=== PATIENT | female | born 1955 | race Caucasian/White ===

== ENCOUNTER 2019-08-13 17:31 | Observation (INO) | payer OTHER ==
[~2019-08-13] VITALS: Ht 160 cm; Wt 59.4 kg
[2019-08-13 17:36] VITALS: Ht 160 cm; Wt 59.4 kg
[2019-08-13 18:09] LABS: BASOPHIL % 0.4 % (0-2); RED CELL DISTRIBUTION WIDTH 14.2 % (11.5-14.5)
[2019-08-13 18:17] LABS: CALCIUM 9.4 mg/dL (8.5-10.1); CARBON DIOXIDE 24.7 mmol/L (21-32); CHLORIDE SERUM 100 mmol/L (98-107); CREATININE SERUM 0.9 mg/dL (0.6-1.0); GFR1 > 60 mL/min; GLUCOSE SERUM 108 mg/dL (74-106); POTASSIUM SERUM 4.2 mmol/L (3.5-5.1); SODIUM SERUM 134 mmol/L (136-145)
[2019-08-13 18:22] LABS: PLATELET COUNT 576 x10^3mcL (130-400)
[2019-08-13] MEDS ORDERED: MEDI-FIRST ASP325 MG PO (21:20)
[2019-08-13] MEDS ORDERED: SULFAMETHOXAZOL1 TAB PO (21:22)
[2019-08-13 22:58] VITALS: BP 142/57
[2019-08-14 06:06] VITALS: BP 127/69
[2019-08-14 06:23] LABS: BASOPHIL % 0.7 % (0-2); RED CELL DISTRIBUTION WIDTH 14.4 % (11.5-14.5)
[2019-08-14 06:33] LABS: PLATELET COUNT 561 x10^3mcL (130-400)
[2019-08-14 07:13] LABS: CALCIUM 9.1 mg/dL (8.5-10.1); CARBON DIOXIDE 24.7 mmol/L (21-32); MAGNESIUM 2.2 mg/dL (1.8-2.4)
[2019-08-14 08:15] VITALS: BP 126/66
[2019-08-14] MEDS ORDERED: ELIQUIS5 M1 PO (09:35)
[2019-08-14] MEDS ORDERED: ELIQUIS5 MG PO (09:35)
[2019-08-14 12:00] VITALS: BP 126/66
== END 2019-08-14 12:44 | disposition home or self-care (01) ==
LOC: ED 17:31 → DU 21:26
PROVIDERS: Emergency Medicine; ADMIT Internal Medicine Pulmonary Disease
DX: I26.99 Other pulmonary embolism without acute cor pulmonale (principal); R06.02 Shortness of breath; E78.5 Hyperlipidemia, unspecified; M19.011 Primary osteoarthritis, right shoulder
CPT/HCPCS: 85378; G0378; J1650; J2405; Q0092; Q9967